=== PATIENT | male | born 1975 | race African-American/Black ===

== ENCOUNTER 2021-03-31 23:50 | Emergency (ER) | payer BC, SELFPAY ==
[2021-03-31 23:55] VITALS: BP 134/85; PULSE 66; TEMP 36.4; O2SAT 98
[2021-04-01 00:03] VITALS: BP 122/88; PULSE 68; RESP 16; TEMP 36.6; O2SAT 98
--- NOTE | 2021-04-01 00:03 | ED.GENADULT ---
HPI - General Adult General Chief complaint: Skin/Abscess/Foreign Body <Oma Jin PA-C - Last Filed: 04/01/21 01:09> Stated complaint: Skin itching <AILIN Ernandez Last Filed: 04/01/21 01:09> Time Seen by Provider: 04/01/21 00:03 <AILIN Ernandez Last Filed: 04/01/21 01:09> Source: patient <AILIN Ernandez Last Filed: 04/01/21 01:09> Mode of arrival: ambulatory <AILIN Ernandez Last Filed: 04/01/21 01:09> Limitations: no limitations <AILIN Ernandez Last Filed: 04/01/21 01:09> History of Present Illness HPI narrative: Patient is here because he has been itching for the last 2 weeks at least. States that it is his entire body but primarily his upper chest and head. Denies any history of psoriasis or eczema even as a child. He has not changed soaps, shampoos, detergents or medications. 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 There is no rash or bites. No one else in the house is affected. He has been treating himself at home with Benadryl and applying cocoa butter after showering. He does take very hot showers per his report. <Oma Jin PA-C - Last Filed: 04/01/21 01:09> Onset (ago): week(s) <AILIN Ernandez Last Filed: 04/01/21 01:09> Severity: mild <AILIN Ernandez Last Filed: 04/01/21 01:09> Quality: other (itching) <AILIN Ernandez Last Filed: 04/01/21 01:09> Pain Consistency: intermittent <AILIN Ernandez Last Filed: 04/01/21 01:09> Treatments prior to arrival: other (benadryl) <Oma Jin PA-C - Last Filed: 04/01/21 01:09> Related Data Allergies/adverse reactions: Allergies Allergy/AdvReac Type Severity Reaction Status Date / Time No Known Allergies Allergy Unverified 04/01/21 00:14 <Oma Jin PA-C - Last Filed: 04/01/21 01:09> Review of Systems Review of Systems: All systems reviewed & are unremarkable except as noted in HPI and below <Oma Jin PA-C - Last Filed: 04/01/21 01:09> [facility] Social History Social History: Social History (Updated 04/01/21 @ 00:34 by Oma Jin PA-C) Smoking status: Current every day smoker Alcohol intake: current Alcohol use details: occasional Substance use: never Living arrangements: with family Occupation/Education: occupation 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 <AILIN Ernandez Last Filed: 04/01/21 01:09> Exam Const: General: healthy appearing, no acute distress and alert <AILIN Ernandez Last Filed: 04/01/21 01:09> Orientation/consciousness: patient oriented x3 <AILIN Ernandez Last Filed: 04/01/21 01:09> HENMT: Head: normal to inspection <AIILN Ernandez Last Filed: 04/01/21 01:09> Eyes: Conjunctivae: conjunctivae normal <AILIN Ernandez Last Filed: 04/01/21 01:09> Pupils: Equal, round and reactive pupils present <AILIN Ernandez Last Filed: 04/01/21 01:09> Chest: Chest palpation & inspection: normal inspection of the chest <AILIN Ernandez Last Filed: 04/01/21 01:09> Resp: Effort & Inspection: normal respiratory effort <AILIN Ernandez Last Filed: 04/01/21 01:09> Auscultation: clear to auscultation bilaterally <Oma Jin PA-C - Last Filed: 04/01/21 01:09> Cardio: Rate: regular rate <AILIN Ernandez Last Filed: 04/01/21 01:09> Rhythm: regular rhythm <Oma Jin PA-C - Last Filed: 04/01/21 01:09> GI: GI Palp: Yes Soft to palpation <AILIN Ernandez Last Filed: 04/01/21 01:09> Skin: General skin exam: normal color <Oma Jin PA-C - Last Filed: 04/01/21 01:09> Rashes: no rashes <Oma Jin PA-C - Last Filed: 04/01/21 01:09> Other: Skin is smooth, there is no scarring or abrasions. There is no flaking from his scalp. Knees and flexor surfaces are clear. <Oma
[2021-04-01 00:07] VITALS: BP 122/88; O2SAT 98
[2021-04-01 00:31] VITALS: BP 115/84; O2SAT 100
[2021-04-01] MEDS: hydrOXYzine HCL 12.5 MG TABLET PO (00:58)
[2021-04-01 01:24] VITALS: BP 124/90; PULSE 61; RESP 18; O2SAT 99
== END 2021-04-01 01:25 | disposition home or self-care (01) ==
PROVIDERS: Emergency Provider General Practice; PCP Family Medicine
DX: L29.9 Pruritus, unspecified (principal); L85.3 Xerosis cutis; F17.200 Nicotine dependence, unspecified, uncomplicated
CPT/HCPCS: 99283; A9270